=== PATIENT | female | born 1970 | race Caucasian/White ===

== ENCOUNTER 2021-06-09 19:20 | Emergency (ER) | payer SELFPAY ==
[~2021-06-09 19:20] MED LIST: CLINORIL 150 M150 MG PO; FELDENE10 MG PO; FLEXERIL 10 MG10 MG PO; HYDROCHLOROTHIA25 MG PO; LEXAPRO10 MG PO; LOSARTAN POTASS50 MG PO; PRILOSEC OTC20 MG PO; TIZANIDINE HCL2 M1 PO; ZOFRAN ODT 4 MG4 MG PO
== END 2021-06-09 21:14 | disposition home or self-care (01) ==
LOC: ER1 19:20
DX: L23.5 Allergic contact dermatitis due to other chemical products (principal); I10 Essential (primary) hypertension
CPT/HCPCS: 96372; 99282; J1100